=== PATIENT | male | born 1975 | race Caucasian/White ===

== ENCOUNTER 2017-07-09 10:19 | Emergency (ER) | payer OTHER ==
[2017-07-09] MEDS: BENOXINATE HCL/FLUORESCEIN SOD 5 ML OPHTH LEFT EYE (11:09)
== END 2017-07-09 11:55 | disposition home or self-care (01) ==
LOC: FTE 10:19
DX: S05.02XA Injury of conjunctiva and corneal abrasion without foreign body, left eye, initial encounter (principal); X58.XXXA Exposure to other specified factors, initial encounter; Y92.9 Unspecified place or not applicable
CPT/HCPCS: 99284; Z7502